=== PATIENT | male | born 1975 | race Caucasian/White ===

== ENCOUNTER 2017-01-15 18:59 | Emergency (ER) | payer OTHER ==
[2017-01-15] MEDS ORDERED: BOOSTRIX IM ONE (19:58)
[2017-01-15] MEDS ORDERED: NORCO 5/325 PO ONE (19:59)
--- NOTE | 2017-01-15 19:59 | Emergency Department Report ---
- General Chief complaint: Skin/Abscess/Foreign Body Stated complaint: LT HAND CUT SWOLLEN Time Seen by Provider: 01/15/17 19:41 Source: patient Mode of arrival: Ambulatory Limitations: No Limitations - History of Present Illness Initial comments: 41-year-old male past medical history hypertension presents with complaint of pain and swelling to the base of left thumb. 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 Patient able to abduct and adduct to flex and extend and rotate his left thumb but painful. Area of base of left thumb slightly swollen, visible yellow abscess had. Patient denies any fever or chills denies any pain wrist, forearm any other part of the left upper extremity pain confined to the base of his left thumb. unaware of tetanus status MD complaint: abscess/boil Tetanus Up to Date: no Location: L hand Severity: moderate Quality: sharp Consistency: constant Context: other - Related Data Previous Rx's Medication Instructions Recorded Last Taken Type Cephalexin [Keflex] 500 mg PO Q12HR #14 cap 01/15/17 Unknown Rx HYDROcodone/APAP 5-325 [[place] 1 each PO Q6HR PRN #6 tablet 01/15/17 Unknown Rx 5/325] Ibuprofen [Motrin] 600 mg PO Q8H PRN #30 tablet 01/15/17 Unknown Rx Sulfamethoxazole/Trimethoprim 1 each PO BID #14 tablet 01/15/17 Unknown Rx [Bactrim DS TAB] Allergies Allergy/AdvReac Type Severity Reaction Status Date / Time No Known Allergies Allergy Verified 01/15/17 19:21 Abscess Boil HPI - HPI Chief Complaint: Skin/Abscess/Foreign Body Stated Complaint: LT HAND CUT SWOLLEN Time Seen by Provider: 01/15/17 19:41 Home Medications: Previous Rx's Medication Instructions Recorded Last Taken Type Cephalexin [Keflex] 500 mg PO Q12HR #14 cap 01/15/17 Unknown Rx HYDROcodone/APAP 5-325 [[place] 1 each PO Q6HR PRN #6 tablet 01/15/17 Unknown Rx 5/325] Ibuprofen [Motrin] 600 mg PO Q8H PRN #30 tablet 01/15/17 Unknown Rx Sulfamethoxazole/Trimethoprim 1 each PO BID #14 tablet 01/15/17 Unknown Rx [Bactrim DS TAB] Allergies/Adverse Reactions: Allergies Allergy/AdvReac Type Severity Reaction Status Date / Time No Known Allergies Allergy Verified 01/15/17 19:21 ED Review of Systems ROS: Stated complaint: LT HAND CUT SWOLLEN Other details as noted in HPI Constitutional: denies: chills, fever Eyes: denies: eye pain, eye discharge, vision change ENT: denies: ear pain, throat pain Respiratory: denies: cough, shortness of breath, wheezing Cardiovascular: denies: chest pain, palpitations Endocrine: no symptoms reported Gastrointestinal: denies: abdominal pain, nausea, diarrhea Genitourinary: denies: urgency, dysuria Musculoskeletal: as per HPI. denies: back pain, joint swelling, arthralgia Skin: denies: rash, lesions Neurological: denies: headache, weakness, paresthesias Psychiatric: denies: anxiety, depression Hematological/Lymphatic: denies: easy bleeding, easy bruising ED Past Medical Hx - Past Medical History Previous Medical History?: Yes Hx Hypertension: Yes Hx Asthma: Yes - Surgical History Past Surgical History?: No - Medications Home Medications: Home Medications Medication Instructions Recorded Confirmed Last Taken Type Cephalexin [Keflex] 500 mg PO Q12HR #14 cap 01/15/17 Unknown Rx HYDROcodone/APAP 5-325 [[place] 1 each PO Q6HR PRN #6 tablet 01/15/17 Unknown Rx 5/325] Ibuprofen [Motrin] 600 mg PO Q8H PRN #30 tablet 01/15/17 Unknown Rx Sulfamethoxazole/Trimethoprim 1 each PO BID #14 tablet 01/15/17 Unknown Rx [Bactrim DS TAB] ED Physical Exam - General Limitations: No Limitations General appearance: alert, in no apparent distress - Head Head exam: Present: atraumatic, normocephalic - Eye Eye exam: Present: normal appearance, PERRL, EOMI - ENT ENT exam: Present: mucous membranes moist - Neck Neck exam: Present: normal inspection - Respiratory Respiratory exam: Present: normal lung sounds bilaterally. Absent: respiratory distress - Cardiovascular Cardiovascular Exam: Present: regular rate, normal rhythm. Absent: systolic murmur, diastolic murmur, rubs, gallop - GI/Abdominal GI/Abdominal exam: Present: soft, normal bowel sounds - Rectal Rectal exam: Present: deferred - Extremities Exam Extremities exam: Present: normal inspection - Expanded Upper Extremity Exam Left Shoulder Exam: Present: normal inspection, full ROM Upper Arm exam: Present: normal inspection, full ROM Elbow exam: Present: normal inspection, full ROM Forearm Wrist exam: Present: normal inspection, full ROM Hand Wrist exam: Present: full ROM, tenderness, swelling (tenderness and swelling at skin fold with visible abscess base of left thumb, abou 1.5 cm in diameter) Hand L/R Front: 1 - Positive: other (abscess) Neuro motor exam: Present: wrist extension intact, thumb opposition intact, thumb IP flexion intact, thumb adduction intact, fingers 2-5 abduction intact Vascular: Present: normal capillary refill, radial pulse, brachial pulse, ulnar pulse - Back Exam Back exam: Present: normal inspection - Neurological Exam Neurological exam: Present: alert, oriented X3, CN II-XII intact, normal gait - Psychiatric Psychiatric exam: Present: normal affect, normal mood - Skin Skin exam: Present: warm, dry, intact, normal color. Absent: rash ED Course Vital Signs 01/15/17 19:16 Temperature 98.7 F Pulse Rate 87 Respiratory 18 Rate Blood Pressure 168/100 O2 Sat by Pulse 96 Oximetry - I & D Left Hand Site: left hand base of left thumb Blade Size: 11 I & D Procedure: betadine prep Progress: 5 mL of lidocaine 1% with epinephrine injected into webspace both sides base of thumb, good anesthesia achieved, small less than 1 cm incision made in webspace , purulent drainage almost immediate, small amount approximately 2 mLs, 1 culture sent, procedure tolerated well minimal bleeding ED Medical Decision Making - Medical Decision Making A/P: Abscess left hand base of thumb 1-patient examined by Dr. Paredes as well. As per Dr. Paredes no indication for blood work, obtain x-ray of left hand, cover pt empirically for cellulitis, as per Dr. Wills exam unlikely to be tenosinovitis given local confied area of swelling only at base of thumb. Distal sensation and capillary refill range of motion all fingers fully intact, patient experienced significant relief with incision and drainage, moderate amount of pus drainage. He advised to return to the ED if abscess reaccumulate he has difficulty moving his thumb if redness spreads beyond just the base of his thumb if he develops fever or chills. Patient understood these instructions clearly 2-Bactrim and Keflex twice a day 7 days 3-wound culture sent 4-advised patient to return to the ED in 48-72 hours for wound check Critical care attestation.: If time is entered above; I have spent that time in minutes in the direct care of this critically ill patient, excluding procedure time. ED Disposition Clinical Impression: Abscess of hand, left Disposition: DISCHARGED TO HOME OR SELFCARE Is pt being admited?: No Does the pt Need Aspirin: No Condition: Stable Instructions: Abscess Incision and Drainage (ED), Cellulitis (ED) Additional Instructions: 48-72 hour check in the emergency room, patient given instructions Prescriptions: Cephalexin [Keflex] 500 mg PO Q12HR #14 cap HYDROcodone/APAP 5-325 [[place] 5/325] 1 each PO Q6HR PRN #6 tablet PRN Reason: Pain Ibuprofen [Motrin] 600 mg PO Q8H PRN #30 tablet PRN Reason: Pain Sulfamethoxazole/Trimethoprim [Bactrim DS TAB] 1 each PO BID #14 tablet Referrals: [facility] [Outside] - 3-5 Days Forms: Accompanied Note, Work/School Release Form(ED) Time of Disposition: 21:02
[2017-01-15] MEDS ORDERED: XYLOCAINE 2%/EPI 1:100,000 INFILTRATI ONE (20:00)
[2017-01-15 21:17] VITALS: BP 157/98
--- NOTE | 2017-01-16 09:07 | XRay Report ---
LEFT HAND: The bony architecture is intact. Bony alignment is normal. No soft tissue abnormalities are seen. The joint spaces appear preserved. IMPRESSION: Normal left hand.
== END 2017-01-15 21:18 | disposition home or self-care (01) ==
LOC: ED 18:59
DX: L02.512 Cutaneous abscess of left hand (principal); I10 Essential (primary) hypertension; J45.909 Unspecified asthma, uncomplicated
CPT/HCPCS: 87116; 90471; 90715